=== PATIENT | female | born 1965 | race Caucasian/White ===

== ENCOUNTER 2017-03-06 10:41 | Emergency (ER) | payer OTHER ==
--- NOTE | 2017-03-06 13:18 | DIAGNOSTIC IMAGING REPORT ---
PROCEDURE: XR CHEST 1 VIEW INDICATION: CHEST PAIN TECHNIQUE: Portable AP view 01:08 p.m. COMPARISON: None. FINDINGS: Lungs are clear. Heart and mediastinum are normal. Thorax is normal. IMPRESSION: 1. Negative chest.
--- NOTE | 2017-03-06 14:51 | ED NURSING NOTES ---
Clinical Report - Nurses [facility] [address] [place] [address] 03/06/2017 10:43 Patient: ASHLEE JANG TRIAGE Triage time 10:50. Acuity: LEVEL 3. Chief Complaint: CHEST PAIN. 10:50 03/06/17. 10:50 03/06/17. Alert. No acute distress. SEPSIS SCREEN: Sepsis Screen. Negative (no infection suspected/documented). --11:05 Russ Lopez R.N. 10:50 03/06/17. BP: 153/77. HR: 101. RR: 18. O2 saturation: 98% on room air. Temp: 98.6 F (oral). Pain level now: 05/23. --11:05 Russ Lopez R.N. Weight: 68.9 kg stated. Height/Length: 61 inches Per Patient. BMI: 28.7. --10:50 Russ Lopez R.N. Medications Albuterol-Ipratropium Inhalation (Solution 0.5-2.5 (3) mg/3mL), prn every 4 hrs. --10:53 Russ Lopez R.N. Alendronate Sodium Oral (Tablet 70 mg) 1 tablet, weekly. --10:53 Russ Lopez R.N. Benzonatate Oral 200 mg, 3x a day as needed. --10:54 Russ Lopez R.N. Budesonide-Formoterol Fumarate Inhalation (Aerosol 80-4.5 mcg/act), 2 puffs two times a days. --10:54 Russ Lopez R.N. Cholecalciferol Oral (Tablet 1000 unit) 1 tablet, daily. --10:55 Russ Lopez R.N. Doxycycline Monohydrate Oral 100mg, two times a day. --10:56 Russ Lopez R.N. Ergocalciferol Oral (Capsule 63413 unit) 1 capsule, weekly. --10:56 Russ Lopez R.N. Insulin pen. --10:57 Russ Lopez R.N. Latuda Oral (Tablet 60 mg), every night. --10:57 Russ Lopez R.N. Levothyroxine Sodium Oral 50 mcg, daily. --10:57 Russ Lopez R.N. Linagliptin Oral (Tablet 5 mg), daily. --10:58 Russ Lopez R.N. Lisinopril Oral 2.5 mg, daily. --10:58 Russ Lopez R.N. Loratadine Oral (Tablet 10 mg), daily. --10:58 Russ Lopez R.N. Montelukast Sodium Oral 10 mg, daily. --10:59 Russ Lopez R.N. Morphine Sulfate Oral 15mg, 2x a day. --10:59 Russ Lopez R.N. Multivitamin Oral, daily. --10:59 Russ Lopez R.N. Novolg Insulin Sliding Scale. --11:00 Russ Lopez R.N. Zofran ODT Oral, as needed. --11:00 Russ Lopez R.N. OXcarbazepine Oral (Tablet 300 mg), 2x a day. --11:00 Russ Lopez R.N. Pantoprazole Sodium Oral 40 mg, daily. --11:00 Russ Lopez R.N. Pravastatin Sodium Oral 20 mg, at bedtime. --11:01 Russ Lopez R.N. Allergies Latex. --11:01 Russ Lopez R.N. PCN. --11:01 Russ Lopez R.N. Sulfa Antibiotics. --11:01 Russ Lopez R.N. Biaxin. --11:01 Russ Lopez R.N. Cephalosporins. --11:01 Russ Lopez R.N. Imitrex. --11:01 Russ Lopez R.N. Zithromax. --11:02 Russ Lopez R.N. Cyclosporine. --11:02 Russ Lopez R.N. Robaxin. --11:02 Russ Lopez R.N. History Arrived by private vehicle. Historian: patient. Primary physician ([facility]). 10:50 03/06/17. ( 2 days ago). She has had difficulty breathing and nausea. 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 (ASA 325 mg at 0800). PAST MEDICAL HX: Immunizations: up-to-date. SOCIAL HX: Current every day light tobacco smoker (cigarette)- less than 1/2 a pack per day. No alcohol use or drug use. No infectious disease exposure. ABUSE ASSESSMENT: No report of abuse. FALL RISK ASSESSMENT: Fall risk assessment completed. No fall risk identified. NUTRITIONAL RISK ASSESSMENT: The nutritional risk assessment revealed no deficiencies. FUNCTIONAL ASSESSMENT: Functional assessment: no impairments noted. LEARNING NEEDS ASSESSMENT: The learning needs assessment revealed no barriers. SKIN INTEGRITY ASSESSMENT: Skin integrity risk assessment completed. No skin integrity risk identified. --11:05 Russ Lopez R.N. PAST MEDICAL HX: The patient has had a hysterectomy. --11:05 Russ Lopez R.N. PROBLEMS: Chronic pain. Hypertension. Emphysema. COPD - Chronic Obstructive Pulmonary Disease. --10:55 Russ Lopez R.N. Urinary Incontinence. Left arm Tingling. Shoulder Pain. Cervicalgia. SIRS. Chronic Back Pain. Hyperplastic Colon Polyp. Pulmonary Nodule. Asthma. Allergic Rhinitis. Osteoporosis. Cauda equina syndrome. Sleep Apnea. Vitamin D deficiency. Gastroesophageal Reflux Disease. --11:04 Russ Lopez R.N. Arthritis. --11:05 Russ Lopez R.N. ADDITIONAL SURGERIES: Back Surgery. Neck Surgery. --10:55 Russ Lopez R.N. Hysterectomy. Knee. Wrist. --11:05 Russ Lopez R.N. Assessment 10:50 03/06/17. --11:05 Russ Lopez R.N. Interventions 10:50 03/06/17. 10:50 03/06/17. ID and allergy band on patient. To treatment room. --11:05 Russ Lopez R.N. PHYSICAL ASSESSMENT 11:06 03/06/17. Ambulatory to room. GENERAL / NEURO / PSYCH: Alert. Oriented X 4. Appears in no acute distress. RESPIRATORY: Respirations not labored. CVS: Normal sinus rhythm noted. SKIN: Skin is warm and dry. --11:06 Russ Lopez R.N. NURSING PROGRESS NOTES 10:56 03/06/17. EKG time: (1058 AM). EKG was ordered, performed by a tech and shown to the ED physician. --10:56 Russ Lopez R.N. 11:03/06/17. The plan of care for this patient has been created. surveillance monitor, pulse oximeter and NIBP monitor placed on patient; monitor alarms on. Patient gowned. Head of bed elevated. Call light placed in reach. Side rails up x 2. Bed placed in lowest position. Brakes of bed on. --11:06 Russ Lopez R.N. 11:03/06/17. Patient ready for evaluation- chart flagged and notification provided. --11:06 Russ Lopez R.N. 11:21 03/06/2017 Site #1 started via IV in the right antecubital space with an 20g angiocath, with aseptic technique and good blood return; one attempt. Blood drawn: rainbow set. Labeled in the presence of the patient and sent to the lab. Saline lock flushed with 10 mL saline. --11:21 Russ Lopez R.N. 12:18 03/06/17. Cardiac rhythm: normal sinus rhythm. --12:18 Russ Lopez R.N. 12:17 03/06/17. BP: 101/65. HR: 82. RR: 16. O2 saturation: 100% on nasal cannula at 2 liters/minute. --12:18 Russ Lopez R.N. 12:18 03/06/17. Patient informed about reason for wait and about plan of care. --12:18 Russ Lopez R.N. DISPOSITION / DISCHARGE 15:00 03/06/2017 Site #1 removed upon discharge. Catheter intact. Bandaid applied. --15:00 Russ Lopez R.N. 15:01 03/06/17. Condition at departure: improved. The goals identified in the patient's plan of care were met. No learning barriers present. Discharge instructions provided and reviewed with the patient. Reviewed warnings. Reviewed medication(s). Treatments reviewed. Patient verbalized understanding. Written instructions provided in Taiwanese. The patient was discharged by the physician. She was discharged home. She left the Emergency Department ambulatory and via private vehicle. Patient driving. FALL RISK ASSESSMENT: Fall risk assessment completed. No fall risk identified. --15:01 Russ Lopez R.N. 15:00 03/06/17. BP: 108/78. HR: 72. RR: 16. O2 saturation: 98% on room air. Temp: 98.2 F (oral). Pain level now: 11/23. --15:01 Russ Lopez R.N. 15:01 03/06/17. Departure time: 15:Mar 06 2017. --15:01 Russ Lopez R.N. Locked/Released at 03/06/2017 15:08 by Russ Lopez R.N.
--- NOTE | 2017-03-06 14:51 | ED ORDER SUMMARY ---
..... Patient: ASHLEE JANG OrderSheet [facility] VisitID: [id number] [address] [place] [address] 51y, F Registration Date/Time: 03/06/2017 ORDER SHEET Weight: 68.9 kg (stated) Allergies: Latex, PCN, Sulfa Antibiotics, Biaxin, Cephalosporins, Imitrex, Zithromax, Cyclosporine, Robaxin GENERAL ORDERS: Decontamination Technician (Continuous) (11:07 03/06/2017 JBoardley R.N. per protocol) (11:08 JBoardley R.N.) Cardiac Panel Stat (11:03/06/2017 JBoardley R.N. per protocol) (Ack 11:09 Veto) (11:21 JBoardley R.N.) UA-Culture if indicated Urgent (11:03/06/2017 JBoardley R.N. per protocol) (Ack 11:09 Veto) (11:21 JBoardley R.N.) Oxygen (2 L/min) (NC) (11:08 03/06/2017 JBoardley R.N. per protocol) (11:08 JBoardley R.N.) Pulse oximeter (11:03/06/2017 JBoardley R.N. per protocol) (11:08 JBoardley R.N.) EKG - ER Stat (11:03/06/2017 JBoardley R.N. per protocol) (11:08 JBoardley R.N.) Vitals (11:03/06/2017 JBoardley R.N. per protocol) (11:08 JBoardley R.N.) BNP Urgent (11:26 03/06/2017 Faye LIMA) (11:27 ALawrence ER Tech1) D-Dimer Urgent (11:49 03/06/2017 Faye LIMA) (11:51 ALawrence ER Tech1) PT with INR Urgent (11:49 03/06/2017 Faye LIMA) (11:51 ALawrence ER Tech1) PTT Urgent (11:49 03/06/2017 Faye LIMA) (11:51 ALawrence ER Tech1) Chest 1V Urgent (12:59 03/06/2017 Faye LIMA) (Ack 13:00 Veto) (13:07 Veto) MEDICATION ORDERS: IV FLUIDS: IV Saline Lock (11:08 03/06/2017 Radha R.N. per protocol) (Ack 11:08 JBoardley R.N.) (11:21 JBoardley R.N.) ORDER SHEET NOTES: [Electronically signed by Russ Lopez R.N. (15:08 03/06/2017)] [Electronically signed by Will Lester MD (04:00 03/08/2017)] [Electronically locked/signed by Russ Lopez R.N. (15:08 03/06/2017)]
--- NOTE | 2017-03-06 14:51 | ED CLINICAL REPORT ---
Clinical Report - Physicians/Mid Levels [facility] [address] [place] [address] 03/06/2017 10:43 Patient: ASHLEE JANG Time Seen: 11:12. Arrived- By private vehicle. Historian- patient. HISTORY OF PRESENT ILLNESS Chief Complaint: CHEST PAIN. At its maximum, severity described as 10 / 10. When seen in the E.D., severity described as 8 / 10. Modifying factors- worsened by exertion and movement. Relieved by rest. This started about 2 days ago and is still present. It was gradual in onset and has been constant and waxing/waning. Onset during rest. It is described as pressure and tightness and it is described as located in the central chest area. No radiation. The patient has had nausea and has experienced diaphoresis. No vomiting. She has had mild difficulty breathing on exertion. REVIEW OF SYSTEMS The patient has had calf pain involving the right leg (last night). She has had moderate pedal edema involving the right and left leg. All systems otherwise negative, except as recorded above. PAST HISTORY PCP - Maribel Whitaker [facility]. SOCIAL HISTORY Current every day light tobacco smoker (cigarette)- less than 1/2 a pack per day. No alcohol use or drug use. Is a local resident. She lives with a family member. FAMILY HISTORY her mother of a PE. ADDITIONAL NOTES The nursing notes have been reviewed. PHYSICAL EXAM Vital Signs: 03/06/2017 10:50 BP: 153/77. HR: 101. RR: 18. O2 saturation: 98%. Temp: 98.6 F. Pain level now: 8/10. Have been reviewed. Appearance: Alert. No acute distress. Eyes: Pupils equal, round and reactive to light. ENT: Pharynx normal. Neck: Neck supple. CVS: Normal heart rate and rhythm. Heart sounds normal. Respiratory: No respiratory distress. Expiratory mild wheezes in the right mid-lung posteriorly. Abdomen: Soft and nontender. Bowel sounds normal. No organomegaly. No mass. Skin: Skin warm and dry. Normal skin color. Normal skin turgor. Extremities: Mild right-sided calf tenderness. LABS, X-RAYS, AND EKG EKG: Rate: 99. The study has been independently viewed by me. Chest X-ray: No acute disease. The X-rays were independently viewed by me. Laboratory Tests: UA-Culture if indicated: (MARCIA: 03/06/2017 11:05) ( MsgRcvd 03/06/2017 11:43) Final results Test Result Flag Units (Reference) URINE COLOR YELLOW URINE APPEARANCE CLEAR URINE GLUCOSE NEGATIVE (NEGATIVE) URINE BILIRUBIN NEGATIVE (NEGATIVE) URINE KETONE NEGATIVE (NEGATIVE) URINE SPECIFIC GRAVITY 1.025 (1.010-1.030) URINE PH 5.5 (5.0-8.0) URINE PROTEIN NEGATIVE (NEGATIVE) URINE UROBILINOGEN 0.2 EU/dL (0.2-1.0) URINE NITRITE NEGATIVE (NEGATIVE) URINE BLOOD NEGATIVE (NEGATIVE) URINE LEUK ESTERASE NEGATIVE (NEGATIVE) URINE RBC 0-1 rbc/hpf (0-1) URINE WBC RARE wbc/hpf (0-1) URINE EPITHELIAL CELLS 0-1 EPI/hpf (0-5) URINE BACTERIA NONE SEEN (NONE SEEN) URINE COMMENT CULT NOT INDICATED URINE CULTURES ARE SET-UP BASED ON THE FOLLOWING CRITERIA:POSITIVE NITRITEPOSITIVE LEUKOCYTE ESTERASEGREATER THAN 10 WHITE BLOOD CELLSMODERATE (2+) OR GREATER BACTERIA CBC w Diff: (MARCIA: 03/06/2017 11:05) ( MsgRcvd 03/06/2017 11:32) Final results Test Result Flag Units (Reference) WHITE BLOOD COUNT 9.4 K/uL (4.5-11.5) RED BLOOD COUNT 4.52 M/uL (4.00-5.20) HEMOGLOBIN 12.7 gm/dL (12.0-16.0) HEMATOCRIT 38.6 % (36.0-46.0) MEAN CELL VOLUME 85 fL (80-100) MEAN CORPUSCULAR HGB 28 pg (26-34) MEAN CORPUSCULAR HGB CONC 33 g/dL (31-37) RED CELL DISTRIBUTION WIDTH 13.9 % (11.6-14.8) PLATELET COUNT 220 K/uL (150-400) NEUTROPHIL % 64.1 % (50-75) LYMPH % 30.3 % (25-40) MONO % 4.4 % (3-14) EOSINOPHIL % 0.8 % (0-4) BASOPHIL % 0.4 % (0-2) PT with INR: (MARCIA: 03/06/2017 11:05) ( [facility] 03/06/2017 12:23) Final results Test Result Flag Units (Reference) INR 0.9 (0.8-1.2) Low Intensity Therapy: INR 1.5-2.0 PT range 18.5-23.1Mod.Intensity Therapy: INR 2.0-3.0 PT range 23.1-31.5High Intensity Therapy: INR 2.5-3.5 PT range 27.4-35.5High Intensity Therapy 2: INR 3.0-4.0 PT range 31.5-39.3 APTT 30 SECONDS (24-34) D-DIMER QUANTITATIVE < 0.27 L ug/mLFEU (0.27-0.52) The primary value of this quantitative assay relates toits negative predictive value (i.e. exclusion) of pulmonaryembolism/deep vein thrombosis/DIC.Elevated levels of d-dimer may also occur with:, age, cancer, inflammation, liver disease,post-op, infection, hematoma, coronary disease, peripheralarteriopathy, bleeding disorders and thrombolytic treatment.Results should be correlated with other clinical andradiological data.Testing Methodology: Latex Immunoassay BNP: (MARCIA: 03/06/2017 11:05) ( [facility] 03/06/2017 12:10) Final results Test Result Flag Units (Reference) B-TYPE NATRIURETIC PEPTIDE 12.6 pg/ml (5-100) CHEM 13 PANEL: (MARCIA: 03/06/2017 11:05) ( [facility] 03/06/2017 12:12) Final results Test Result Flag Units (Reference) GLUCOSE 157 H mg/dL (70-110) BUN 9 mg/dL (7-18) CREATININE 0.7 mg/dL (0.6-1.3) Estimated GFR >60 mL/min Estimated GFR- >60 mL/min Note: Persistent reduction over 3 months in eGFR<60 mL/min/1.73 m2 defines CKD. Patients with eGFR values>=60 mL/min/1.73 m2 may also have CKD if evidence ofpersistent proteinuria. Additional information may be foundat www.kidney.org. SODIUM 136 mmol/L (136-145) POTASSIUM 3.8 mmol/L (3.5-5.1) CHLORIDE 101 mmol/L (98-107) CARBON DIOXIDE 22 mmol/L (21-32) CALCIUM 8.3 L mg/dL (8.5-10.1) TOTAL PROTEIN 7.5 g/dL (6.4-8.2) ALBUMIN 3.5 g/dL (3.3-5.0) BILIRUBIN, TOTAL 0.1 mg/dL (0.0-1.0) ALKALINE PHOSPHATASE 118 H U/L (46-116) AST (SGOT) 22 U/L (15-37) ALT (SGPT) 40 U/L (12-78) MAGNESIUM 1.6 L mg/dL (1.8-2.4) CPK 42 U/L (24-260) TROPONIN I 0.05 ng/mL (0.00-1.5) TROPONIN REFERENCE RANGE:<0.1 NEGATIVE0.1-1.5 INDETERMINANT>1.5 POSITIVE . PROGRESS AND PROCEDURES Course of Care: Patient is stable. Patient/family counseled. Old medical records ordered. Old records unavailable. Disposition: Discharged. Condition: stable. CLINICAL IMPRESSION Atypical chest pain INSTRUCTIONS Avoid stimulants (such as cigarettes, coffee, cold medicines, sinus medicines, street drugs). Follow a low salt diet. Do not smoke. Seek medical help to quit smoking. (Talk with your doctor about undergoing a stress test as discussed.). Warnings: Further evaluation is necessary. GENERAL WARNINGS: Return or contact your physician immediately if your condition worsens or changes unexpectedly, if not improving as expected, or if other problems arise. Your Current Medications: CONTINUE TAKING THE FOLLOWING MEDICATIONS: Albuterol-Ipratropium Inhalation : Solution 0.5-2.5 (3) mg/3mL, prn every 4 hrs. Alendronate Sodium Oral : Tablet 70 mg, 1 tablet weekly. Benzonatate Oral : 200 mg 3x a day, prn. Budesonide-Formoterol Fumarate Inhalation : Aerosol 80-4.5 mcg/act, 2 puffs two times a days. Cholecalciferol Oral : Tablet 1000 unit, 1 tablet daily. Doxycycline Monohydrate Oral : 100mg two times a day. Ergocalciferol Oral : Capsule 46892 unit, 1 capsule weekly. Insulin pen*. Latuda Oral : Tablet 60 mg, every night. Levothyroxine Sodium Oral : 50 mcg daily. Linagliptin Oral : Tablet 5 mg, daily. Lisinopril Oral : 2.5 mg daily. Loratadine Oral : Tablet 10 mg, daily. Montelukast Sodium Oral : 10 mg daily. Morphine Sulfate Oral : 15mg 2x a day. Multivitamin Oral : daily. Novolg Insulin Sliding Scale*. OXcarbazepine Oral : Tablet 300 mg, 2x a day. Pantoprazole Sodium Oral : 40 mg daily. Zofran ODT Oral : prn. Follow-up: Follow up with your doctor tomorrow as scheduled. Follow up with a cook specialty foreign food- as recommended by your primary care physician. Understanding of the discharge instructions verbalized by patient. (Electronically signed by Will Lester MD 03/08/2017 4:00)
--- NOTE | 2017-03-06 14:51 | ED ORDER SUMMARY ---
..... Patient: ASHLEE JANG OrderSheet [facility] VisitID: [id number] [address] [place] [address] 51y, F Registration Date/Time: 03/06/2017 ORDER SHEET Weight: 68.9 kg (stated) Allergies: Latex, PCN, Sulfa Antibiotics, Biaxin, Cephalosporins, Imitrex, Zithromax, Cyclosporine, Robaxin GENERAL ORDERS: Industrial Hygiene Technician (Continuous) (11:07 03/06/2017 JBoardley R.N. per protocol) (11:08 JBoardley R.N.) Cardiac Panel Stat (11:03/06/2017 JBoardley R.N. per protocol) (Ack 11:09 Veto) (11:21 JBoardley R.N.) UA-Culture if indicated Urgent (11:03/06/2017 JBoardley R.N. per protocol) (Ack 11:09 Veto) (11:21 JBoardley R.N.) Oxygen (2 L/min) (NC) (11:08 03/06/2017 JBoardley R.N. per protocol) (11:08 JBoardley R.N.) Pulse oximeter (11:03/06/2017 JBoardley R.N. per protocol) (11:08 JBoardley R.N.) EKG - ER Stat (11:03/06/2017 JBoardley R.N. per protocol) (11:08 JBoardley R.N.) Vitals (11:03/06/2017 JBoardley R.N. per protocol) (11:08 JBoardley R.N.) BNP Urgent (11:26 03/06/2017 Faye LIMA) (11:27 ALawrence ER Tech1) D-Dimer Urgent (11:49 03/06/2017 Faye LIMA) (11:51 ALawrence ER Tech1) PT with INR Urgent (11:49 03/06/2017 Faye LIMA) (11:51 ALawrence ER Tech1) PTT Urgent (11:49 03/06/2017 Faye LIMA) (11:51 ALawrence ER Tech1) Chest 1V Urgent (12:59 03/06/2017 Faye LIMA) (Ack 13:00 Veto) (13:07 Veto) MEDICATION ORDERS: IV FLUIDS: IV Saline Lock (11:08 03/06/2017 Radha R.N. per protocol) (Ack 11:08 JBoardley R.N.) (11:21 JBoardley R.N.) ORDER SHEET NOTES: [Electronically signed by Russ Lopez R.N. (15:08 03/06/2017)] [Electronically signed by Will Lester MD (04:00 03/08/2017)] [Electronically locked/signed by Russ Lopez R.N. (15:08 03/06/2017)]
--- NOTE | 2017-03-06 14:51 | ED NURSING NOTES ---
Clinical Report - Nurses [facility] [address] [place] [address] 03/06/2017 10:43 Patient: ASHLEE JANG TRIAGE Triage time 10:50. Acuity: LEVEL 3. Chief Complaint: CHEST PAIN. 10:50 03/06/17. 10:50 03/06/17. Alert. No acute distress. SEPSIS SCREEN: Sepsis Screen. Negative (no infection suspected/documented). --11:05 Russ Lopez R.N. 10:50 03/06/17. BP: 153/77. HR: 101. RR: 18. O2 saturation: 98% on room air. Temp: 98.6 F (oral). Pain level now: 05/23. --11:05 Russ Lopez R.N. Weight: 68.9 kg stated. Height/Length: 61 inches Per Patient. BMI: 28.7. --10:50 Russ Lopez R.N. Medications Albuterol-Ipratropium Inhalation (Solution 0.5-2.5 (3) mg/3mL), prn every 4 hrs. --10:53 Russ Lopez R.N. Alendronate Sodium Oral (Tablet 70 mg) 1 tablet, weekly. --10:53 Russ Lopez R.N. Benzonatate Oral 200 mg, 3x a day as needed. --10:54 Russ Lopez R.N. Budesonide-Formoterol Fumarate Inhalation (Aerosol 80-4.5 mcg/act), 2 puffs two times a days. --10:54 Russ Lopez R.N. Cholecalciferol Oral (Tablet 1000 unit) 1 tablet, daily. --10:55 Russ Lopez R.N. Doxycycline Monohydrate Oral 100mg, two times a day. --10:56 Russ Lopez R.N. Ergocalciferol Oral (Capsule 18603 unit) 1 capsule, weekly. --10:56 Russ Lopez R.N. Insulin pen. --10:57 Russ Lopez R.N. Latuda Oral (Tablet 60 mg), every night. --10:57 Russ Lopez R.N. Levothyroxine Sodium Oral 50 mcg, daily. --10:57 Russ Lopez R.N. Linagliptin Oral (Tablet 5 mg), daily. --10:58 Russ Lopez R.N. Lisinopril Oral 2.5 mg, daily. --10:58 Russ Lopez R.N. Loratadine Oral (Tablet 10 mg), daily. --10:58 Russ Lopez R.N. Montelukast Sodium Oral 10 mg, daily. --10:59 Russ Lopez R.N. Morphine Sulfate Oral 15mg, 2x a day. --10:59 Russ Lopez R.N. Multivitamin Oral, daily. --10:59 Russ Lopez R.N. Novolg Insulin Sliding Scale. --11:00 Russ Lopez R.N. Zofran ODT Oral, as needed. --11:00 Russ Lopez R.N. OXcarbazepine Oral (Tablet 300 mg), 2x a day. --11:00 Russ Lopez R.N. Pantoprazole Sodium Oral 40 mg, daily. --11:00 Russ Lopez R.N. Pravastatin Sodium Oral 20 mg, at bedtime. --11:01 Russ Lopez R.N. Allergies Latex. --11:01 Russ Lopez R.N. PCN. --11:01 Russ Lopez R.N. Sulfa Antibiotics. --11:01 Russ Lopez R.N. Biaxin. --11:01 Russ Lopez R.N. Cephalosporins. --11:01 Russ Lopez R.N. Imitrex. --11:01 Russ Lopez R.N. Zithromax. --11:02 Russ Lopez R.N. Cyclosporine. --11:02 Russ Lopez R.N. Robaxin. --11:02 Russ Lopez R.N. History Arrived by private vehicle. Historian: patient. Primary physician ([facility]). 10:50 03/06/17. ( 2 days ago). She has had difficulty breathing and nausea. Treatment CUT OFF TENDER GLASS: Took aspirin. (ASA 325 mg at 0800). PAST MEDICAL HX: Immunizations: up-to-date. SOCIAL HX: Current every day light tobacco smoker (cigarette)- less than 1/2 a pack per day. No alcohol use or drug use. No infectious disease exposure. ABUSE ASSESSMENT: No report of abuse. FALL RISK ASSESSMENT: Fall risk assessment completed. No fall risk identified. NUTRITIONAL RISK ASSESSMENT: The nutritional risk assessment revealed no deficiencies. FUNCTIONAL ASSESSMENT: Functional assessment: no impairments noted. LEARNING NEEDS ASSESSMENT: The learning needs assessment revealed no barriers. SKIN INTEGRITY ASSESSMENT: Skin integrity risk assessment completed. No skin integrity risk identified. --11:05 Russ Lopez R.N. PAST MEDICAL HX: The patient has had a hysterectomy. --11:05 Russ Lopez R.N. PROBLEMS: Chronic pain. Hypertension. Emphysema. COPD - Chronic Obstructive Pulmonary Disease. --10:55 Russ Lopez R.N. Urinary Incontinence. Left arm Tingling. Shoulder Pain. Cervicalgia. SIRS. Chronic Back Pain. Hyperplastic Colon Polyp. Pulmonary Nodule. Asthma. Allergic Rhinitis. Osteoporosis. Cauda equina syndrome. Sleep Apnea. Vitamin D deficiency. Gastroesophageal Reflux Disease. --11:04 Russ Lopez R.N. Arthritis. --11:05 Russ Lopez R.N. ADDITIONAL SURGERIES: Back Surgery. Neck Surgery. --10:55 Russ Lopez R.N. Hysterectomy. Knee. Wrist. --11:05 Russ Lopez R.N. Assessment 10:50 03/06/17. --11:05 Russ Lopez R.N. Interventions 10:50 03/06/17. 10:50 03/06/17. ID and allergy band on patient. To treatment room. --11:05 Russ Lopez R.N. PHYSICAL ASSESSMENT 11:06 03/06/17. Ambulatory to room. GENERAL / NEURO / PSYCH: Alert. Oriented X 4. Appears in no acute distress. RESPIRATORY: Respirations not labored. CVS: Normal sinus rhythm noted. SKIN: Skin is warm and dry. --11:06 Russ Lopez R.N. NURSING PROGRESS NOTES 10:56 03/06/17. EKG time: (1058 AM). EKG was ordered, performed by a tech and shown to the ED physician. --10:56 Russ Lopez R.N. 11:03/06/17. The plan of care for this patient has been created. retail sales advisor, pulse oximeter and NIBP monitor placed on patient; monitor alarms on. Patient gowned. Head of bed elevated. Call light placed in reach. Side rails up x 2. Bed placed in lowest position. Brakes of bed on. --11:06 Russ Lopez R.N. 11:03/06/17. Patient ready for evaluation- chart flagged and notification provided. --11:06 Russ Lopez R.N. 11:21 03/06/2017 Site #1 started via IV in the right antecubital space with an 20g angiocath, with aseptic technique and good blood return; one attempt. Blood drawn: rainbow set. Labeled in the presence of the patient and sent to the lab. Saline lock flushed with 10 mL saline. --11:21 Russ Lopez R.N. 12:18 03/06/17. Cardiac rhythm: normal sinus rhythm. --12:18 Russ Lopez R.N. 12:17 03/06/17. BP: 101/65. HR: 82. RR: 16. O2 saturation: 100% on nasal cannula at 2 liters/minute. --12:18 Russ Lopez R.N. 12:18 03/06/17. Patient informed about reason for wait and about plan of care. --12:18 Russ Lopez R.N. DISPOSITION / DISCHARGE 15:00 03/06/2017 Site #1 removed upon discharge. Catheter intact. Bandaid applied. --15:00 Russ Lopez R.N. 15:01 03/06/17. Condition at departure: improved. The goals identified in the patient's plan of care were met. No learning barriers present. Discharge instructions provided and reviewed with the patient. Reviewed warnings. Reviewed medication(s). Treatments reviewed. Patient verbalized understanding. Written instructions provided in [place]. The patient was discharged by the physician. She was discharged home. She left the Emergency Department ambulatory and via private vehicle. Patient driving. FALL RISK ASSESSMENT: Fall risk assessment completed. No fall risk identified. --15:01 Russ Lopez R.N. 15:00 03/06/17. BP: 108/78. HR: 72. RR: 16. O2 saturation: 98% on room air. Temp: 98.2 F (oral). Pain level now: 11/23. --15:01 Russ Lopez R.N. 15:01 03/06/17. Departure time: 15:Mar 06 2017. --15:01 Russ Lopez R.N. Locked/Released at 03/06/2017 15:08 by Russ Lopez R.N.
--- NOTE | 2017-03-08 04:01 | ED MED RECONCILIATION SUMMARY ---
Patient: ASHLEE JANG Medication Reconciliation Report [facility] VisitID: [id number] [address] [place] [address] 51y, F Registration Date/Time: 03/06/2017 Weight: 68.9 kg Height/Length: 61 in. BMI: 28.7 ALLERGIES: Biaxin, Cephalosporins, Cyclosporine, Imitrex, Latex, PCN, Robaxin, Sulfa Antibiotics, Zithromax The patient's Home Medications are listed below: CONTINUE TAKING THE FOLLOWING MEDICATIONS: Albuterol-Ipratropium Inhalation (0.5-2.5 (3) mg/3mL), prn every 4 hrs Alendronate Sodium Oral (70 mg) 1 tablet, weekly Benzonatate Oral 200 mg, 3x a day Budesonide-Formoterol Fumarate Inhalation (80-4.5 mcg/act), 2 puffs two times a days Cholecalciferol Oral (1000 unit) 1 tablet, daily Doxycycline Monohydrate Oral 100mg, two times a day Ergocalciferol Oral (08963 unit) 1 capsule, weekly Insulin pen Latuda Oral (60 mg), every night Levothyroxine Sodium Oral 50 mcg, daily Linagliptin Oral (5 mg), daily Lisinopril Oral 2.5 mg, daily Loratadine Oral (10 mg), daily Montelukast Sodium Oral 10 mg, daily Morphine Sulfate Oral 15mg, 2x a day Multivitamin Oral, daily Novolg Insulin Sliding Scale OXcarbazepine Oral (300 mg), 2x a day Pantoprazole Sodium Oral 40 mg, daily Zofran ODT Oral THE FOLLOWING MEDICATIONS NEED TO BE RECONCILED: Pravastatin Sodium Oral 20 mg, at bedtime The source(s) of the original Home Medication information: Not obtained. The following Medications were given to the patient in the Emergency Department: None. The following Medications were prescribed to the patient: None.
--- NOTE | 2017-03-08 04:01 | ED MAR SUMMARY ---
..... Medication Administration Record [facility] [address] [place], [place] [id number] Patient: ASHLEE JANG Visit ID: [id number] 51y, F Weight: 68.9 kg Height/Length: 61 in BMI: 28.7 ALLERGIES: Robaxin, Cyclosporine, Zithromax, Imitrex, Cephalosporins, Biaxin, Sulfa Antibiotics, PCN, Latex
--- NOTE | 2017-03-08 04:01 | ED DISCHARGE INSTRUCTIONS ---
Patient: ASHLEE JANG General Instructions [facility] VisitID: [id number] [place] [address] 51y, F Registration Date/Time: 03/06/2017 Atypical chest pain INSTRUCTIONS Avoid stimulants (such as cigarettes, coffee, cold medicines, sinus medicines, street drugs). Follow a low salt diet. Do not smoke. Seek medical help to quit smoking. (Talk with your doctor about undergoing a stress test as discussed.). Warnings: Further evaluation is necessary. GENERAL WARNINGS: Return or contact your physician immediately if your condition worsens or changes unexpectedly, if not improving as expected, or if other problems arise. Your Current Medications: CONTINUE TAKING THE FOLLOWING MEDICATIONS: Albuterol-Ipratropium Inhalation : Solution 0.5-2.5 (3) mg/3mL, prn every 4 hrs. Alendronate Sodium Oral : Tablet 70 mg, 1 tablet weekly. Benzonatate Oral : 200 mg 3x a day, prn. Budesonide-Formoterol Fumarate Inhalation : Aerosol 80-4.5 mcg/act, 2 puffs two times a days. Cholecalciferol Oral : Tablet 1000 unit, 1 tablet daily. Doxycycline Monohydrate Oral : 100mg two times a day. Ergocalciferol Oral : Capsule 62398 unit, 1 capsule weekly. Insulin pen*. Latuda Oral : Tablet 60 mg, every night. Levothyroxine Sodium Oral : 50 mcg daily. Linagliptin Oral : Tablet 5 mg, daily. Lisinopril Oral : 2.5 mg daily. Loratadine Oral : Tablet 10 mg, daily. Montelukast Sodium Oral : 10 mg daily. Morphine Sulfate Oral : 15mg 2x a day. Multivitamin Oral : daily. Novolg Insulin Sliding Scale*. OXcarbazepine Oral : Tablet 300 mg, 2x a day. Pantoprazole Sodium Oral : 40 mg daily. Zofran ODT Oral : prn. Follow-up: Follow up with your doctor tomorrow as scheduled. Follow up with a in flight refueling manager- as recommended by your primary care physician. Understanding of the discharge instructions verbalized by patient. ADDITIONAL INFORMATION Chest Pain, Uncertain Cause Chest pain can happen for a number of reasons. Sometimes the cause can not be determined. If yourcondition does not seem serious, and your pain does not appear to be coming from your heart, your doctor may recommend watching it closely. Sometimes the signs of a serious problem take more time to appear. Therefore, watch for the warning signs listed below. Home care After your visit, follow these recommendations: Rest today and avoid strenuous activity. Take any prescribed medicine as directed. Follow-up care Follow up with your doctor or this facility as instructed or if you do not start to feel better within 24 hours. Call 911 Get immediate medical attention if any of the following occur: A change in the type of pain: if it feels different, becomes more severe, lasts longer, or begins to spread into your shoulder, arm, neck, jaw or back Shortness of breath or increased pain with breathing Weakness, dizziness, or fainting Rapid heart beat Get prompt medical attention Call your doctor right away if any of the following occur: Cough with dark colored sputum (phlegm) or blood Fever of 100.4F(38C) or higher, or as directed by your health care provider Swelling, pain or redness in one leg Low-Salt Diet (2 Grams/Day) This diet eliminates foods that are high in salt and restricts the amount of salt that you cook with. It is most often used for patients with high blood pressure, edema (fluid retention), kidney, liver, and heart disease. Table salt contains the mineral sodium. The body needs sodium to work normally. But too much sodium can make your health problems worse. Your healthcare provider is recommending a low-salt (also called low-sodium) diet for you. Your total daily allowance of salt (sodium) is 2 grams. This equals 2,000 milligrams (mg). It is less than 1 teaspoon of table salt. This means you can have only about 700 mg of sodium at each meal. When you cook, limit the salt you use. And if you can avoid using salt, even better. Do not add salt at the table. So, throw away the saltshaker! When shopping, read the package labels. Salt is often called sodium on the label. Choose foods that are Salt-Free, Low Salt, or Very Low Salt. Note that foods with Reduced Salt may notlower your salt intake enough. Beverages OK: Tea, coffee, carbonated beverages, juices AVOID: Flavored international coffees, electrolyte replacement drinks, sports beverages Bread & Cereals OK: All regular bread, rolls, cereals, cakes; low-salt crackers, matzoh crackers AVOID: Salted crackers, pretzels, popcorn; cook islander toast, pancakes, muffins Fruits & Desserts OK: Ice cream, frozen yogurt, juice bars, gelatin (Jell-O), cookies and pies, sugar, honey, jelly, hard candy AVOID: Most pies, cakes and cookies prepared or processed with salt, instant pudding Meats OK: All fresh meat, fish, poultry, low-salt tuna AVOID: Smoked, pickled, brine-cured, or salted meats or fish. Thisincludes cuevas, chipped beef, corned beef, hot dogs, luncheon meats, ham, kosher meats, salt pork, sausage, canned tuna, salted codfish, smokedsalmon, montoya, sardines, or anchovies. Dairy OK: Milk, chocolate milk, hot chocolate mix; eggs, Low Salt cheeses, yogurt, egg substitute AVOID: Processed cheese, cheese spreads, Roquefort, Camembert, and cottage cheese, buttermilk, instant breakfast drink Beans, Potatoes & Pasta OK: Dry beans, split peas, lentils, potatoes, rice, macaroni, noodles, spaghetti without added salt AVOID: Potato chips, tortilla chips, and similar products Soups OK: Low-salt soups and broths made with allowed foods AVOID: Bouillon cubes, soups with smoked or salted meats, regular soup and broth Vegetables OK: Most are okay; low-salt tomato and vegetable juices AVOID: Sauerkraut and other brine-soaked vegetables, pickles and other pickled vegetables, tomato juice, olives Seasoning & Spices OK: Most seasonings are okay. Good substitutes for salt include: fresh herb blends, Tabasco, lemon, garlic, sharma, vinegar, dry mustard, parsley, cilantro, horseradish, tomato paste, regular margarine, mayonnaise, butter, cream cheese, vegetable oil, cream, low-salt salad dressing and gravy AVOID: Regular ketchup, relishes, pickles, soy sauce, teriyaki sauce, Worcestershire sauce, BBQ sauce, tartar sauce, meat tenderizer, chili sauce, regular gravy, regular salad dressing How To Quit Smoking Smoking is one of the hardest habits to break. About half of all those who have ever smoked have been able to quit, and most of those (about 70%) who still smoke want to quit. Here are some of the best ways to stop smoking. Keep Trying: It takes most smokers about 8 tries before they are finally able to fully quit. So, the more often you try and fail, the better your chance of quitting the next time! So, don't give up! Go Cold [place]: Most ex-smokers quit cold turkey. Trying to cut back gradually doesn't seem to work as well, perhaps because it continues the smoking habit. Also, it is possible to fool yourself by inhaling more while smoking fewer cigarettes. This results in the same amount of nicotine in your body! Get Support: Support programs can make an important difference, especially for the heavy smoker. These groups offer lectures, methods to change your behavior and peer support. Call the free national Quitline for more information. 170-FKVM-CFM (688-284-5342). Low-cost or free programs are offered by many hospitals, local chapters of the [place] [employer] (091-034-1021) and the [place] [employer] (695-157-5150). Support at home is important too. Non-smokers can help by offering praise and encouragement. If the smoker fails to quit, encourage them to try again! Gcgf-Ebz-Tucnjfn Medicines: For those who can't quit on their own, Nicotine Replacement Therapy (NRT) may make quitting much easier. Certain aids such as the nicotine patch, gum and lozenge are available without a prescription. However, it is best to use these under the guidance of your doctor. The skin patch provides a steady supply of nicotine to the body. Nicotine gum and lozenge gives temporary bursts of low levels of nicotine. Both methods take the edge off the craving for cigarettes. WARNING: If you feel symptoms of nicotine overdose, such as nausea, vomiting, dizziness, weakness, or fast heartbeat, stop using these and see your doctor. Prescription Medicines: After evaluating your smoking patterns and prior attempts at quitting, your doctor may offer a prescription medicine such as bupropion (Zyban, Wellbutrin), varenicline (Chantix, Champix), a niocotine inhaler or nasal spray. Each has its unique advantage and side effects which your doctor can review with you. Health Benefits Of Quitting: The benefits of quitting start right away and keep improving the longer you go without smokin minutes: blood pressure and pulse return to normal 8 hours: oxygen levels return to normal 2 days: ability to smell and taste begins to improve as damaged nerves start to regrow 2-3 weeks: circulation and lung function improves 1-9 months: decreased cough, congestion and shortness of breath; less tired 1 year: risk of heart attack decreases by half 5 years: risk of lung cancer decreases by half; risk of stroke becomes the same as a non-smoker For information about how to quit smoking, visit the following links: National Cancer Ary , Clearing the Air, Quit Smoking Today - an online booklet. http://www.smokefree.gov/pubs/clearing_the_air.pdf Smokefree.gov http://smokefree.gov/ QuitNet http://www.quitnet.com/ You have been given the following additional information: Chest Pain, Uncertain Cause Diet, Low Salt (2Gm) Smoking Cessation (Electronically signed by Will Lester MD 03/08/2017 4:00)
--- NOTE | 2017-03-08 04:01 | ED DISCHARGE INSTRUCTIONS ---
Patient: ASHLEE JANG General Instructions [facility] VisitID: [id number] [place] [address] 51y, F Registration Date/Time: 03/06/2017 Atypical chest pain INSTRUCTIONS Avoid stimulants (such as cigarettes, coffee, cold medicines, sinus medicines, street drugs). Follow a low salt diet. Do not smoke. Seek medical help to quit smoking. (Talk with your doctor about undergoing a stress test as discussed.). Warnings: Further evaluation is necessary. GENERAL WARNINGS: Return or contact your physician immediately if your condition worsens or changes unexpectedly, if not improving as expected, or if other problems arise. Your Current Medications: CONTINUE TAKING THE FOLLOWING MEDICATIONS: Albuterol-Ipratropium Inhalation : Solution 0.5-2.5 (3) mg/3mL, prn every 4 hrs. Alendronate Sodium Oral : Tablet 70 mg, 1 tablet weekly. Benzonatate Oral : 200 mg 3x a day, prn. Budesonide-Formoterol Fumarate Inhalation : Aerosol 80-4.5 mcg/act, 2 puffs two times a days. Cholecalciferol Oral : Tablet 1000 unit, 1 tablet daily. Doxycycline Monohydrate Oral : 100mg two times a day. Ergocalciferol Oral : Capsule 54080 unit, 1 capsule weekly. Insulin pen*. Latuda Oral : Tablet 60 mg, every night. Levothyroxine Sodium Oral : 50 mcg daily. Linagliptin Oral : Tablet 5 mg, daily. Lisinopril Oral : 2.5 mg daily. Loratadine Oral : Tablet 10 mg, daily. Montelukast Sodium Oral : 10 mg daily. Morphine Sulfate Oral : 15mg 2x a day. Multivitamin Oral : daily. Novolg Insulin Sliding Scale*. OXcarbazepine Oral : Tablet 300 mg, 2x a day. Pantoprazole Sodium Oral : 40 mg daily. Zofran ODT Oral : prn. Follow-up: Follow up with your doctor tomorrow as scheduled. Follow up with a training analyst- as recommended by your primary care physician. Understanding of the discharge instructions verbalized by patient. ADDITIONAL INFORMATION Chest Pain, Uncertain Cause Chest pain can happen for a number of reasons. Sometimes the cause can not be determined. If yourcondition does not seem serious, and your pain does not appear to be coming from your heart, your doctor may recommend watching it closely. Sometimes the signs of a serious problem take more time to appear. Therefore, watch for the warning signs listed below. Home care After your visit, follow these recommendations: Rest today and avoid strenuous activity. Take any prescribed medicine as directed. Follow-up care Follow up with your doctor or this facility as instructed or if you do not start to feel better within 24 hours. Call 911 Get immediate medical attention if any of the following occur: A change in the type of pain: if it feels different, becomes more severe, lasts longer, or begins to spread into your shoulder, arm, neck, jaw or back Shortness of breath or increased pain with breathing Weakness, dizziness, or fainting Rapid heart beat Get prompt medical attention Call your doctor right away if any of the following occur: Cough with dark colored sputum (phlegm) or blood Fever of 100.4F(38C) or higher, or as directed by your health care provider Swelling, pain or redness in one leg Low-Salt Diet (2 Grams/Day) This diet eliminates foods that are high in salt and restricts the amount of salt that you cook with. It is most often used for patients with high blood pressure, edema (fluid retention), kidney, liver, and heart disease. Table salt contains the mineral sodium. The body needs sodium to work normally. But too much sodium can make your health problems worse. Your healthcare provider is recommending a low-salt (also called low-sodium) diet for you. Your total daily allowance of salt (sodium) is 2 grams. This equals 2,000 milligrams (mg). It is less than 1 teaspoon of table salt. This means you can have only about 700 mg of sodium at each meal. When you cook, limit the salt you use. And if you can avoid using salt, even better. Do not add salt at the table. So, throw away the saltshaker! When shopping, read the package labels. Salt is often called sodium on the label. Choose foods that are Salt-Free, Low Salt, or Very Low Salt. Note that foods with Reduced Salt may notlower your salt intake enough. Beverages OK: Tea, coffee, carbonated beverages, juices AVOID: Flavored international coffees, electrolyte replacement drinks, sports beverages Bread & Cereals OK: All regular bread, rolls, cereals, cakes; low-salt crackers, matzoh crackers AVOID: Salted crackers, pretzels, popcorn; greenlandic toast, pancakes, muffins Fruits & Desserts OK: Ice cream, frozen yogurt, juice bars, gelatin (Jell-O), cookies and pies, sugar, honey, jelly, hard candy AVOID: Most pies, cakes and cookies prepared or processed with salt, instant pudding Meats OK: All fresh meat, fish, poultry, low-salt tuna AVOID: Smoked, pickled, brine-cured, or salted meats or fish. Thisincludes cuevas, chipped beef, corned beef, hot dogs, luncheon meats, ham, kosher meats, salt pork, sausage, canned tuna, salted codfish, smokedsalmon, montoya, sardines, or anchovies. Dairy OK: Milk, chocolate milk, hot chocolate mix; eggs, Low Salt cheeses, yogurt, egg substitute AVOID: Processed cheese, cheese spreads, Roquefort, Camembert, and cottage cheese, buttermilk, instant breakfast drink Beans, Potatoes & Pasta OK: Dry beans, split peas, lentils, potatoes, rice, macaroni, noodles, spaghetti without added salt AVOID: Potato chips, tortilla chips, and similar products Soups OK: Low-salt soups and broths made with allowed foods AVOID: Bouillon cubes, soups with smoked or salted meats, regular soup and broth Vegetables OK: Most are okay; low-salt tomato and vegetable juices AVOID: Sauerkraut and other brine-soaked vegetables, pickles and other pickled vegetables, tomato juice, olives Seasoning & Spices OK: Most seasonings are okay. Good substitutes for salt include: fresh herb blends, Tabasco, lemon, garlic, sharma, vinegar, dry mustard, parsley, cilantro, horseradish, tomato paste, regular margarine, mayonnaise, butter, cream cheese, vegetable oil, cream, low-salt salad dressing and gravy AVOID: Regular ketchup, relishes, pickles, soy sauce, teriyaki sauce, Worcestershire sauce, BBQ sauce, tartar sauce, meat tenderizer, chili sauce, regular gravy, regular salad dressing How To Quit Smoking Smoking is one of the hardest habits to break. About half of all those who have ever smoked have been able to quit, and most of those (about 70%) who still smoke want to quit. Here are some of the best ways to stop smoking. Keep Trying: It takes most smokers about 8 tries before they are finally able to fully quit. So, the more often you try and fail, the better your chance of quitting the next time! So, don't give up! Go Cold [place]: Most ex-smokers quit cold turkey. Trying to cut back gradually doesn't seem to work as well, perhaps because it continues the smoking habit. Also, it is possible to fool yourself by inhaling more while smoking fewer cigarettes. This results in the same amount of nicotine in your body! Get Support: Support programs can make an important difference, especially for the heavy smoker. These groups offer lectures, methods to change your behavior and peer support. Call the free national Quitline for more information. 621-CZIV-PYI (921-244-4733). Low-cost or free programs are offered by many hospitals, local chapters of the [place] [employer] (079-622-9017) and the [place] [employer] (158-017-0998). Support at home is important too. Non-smokers can help by offering praise and encouragement. If the smoker fails to quit, encourage them to try again! Iazr-Zci-Koyxanw Medicines: For those who can't quit on their own, Nicotine Replacement Therapy (NRT) may make quitting much easier. Certain aids such as the nicotine patch, gum and lozenge are available without a prescription. However, it is best to use these under the guidance of your doctor. The skin patch provides a steady supply of nicotine to the body. Nicotine gum and lozenge gives temporary bursts of low levels of nicotine. Both methods take the edge off the craving for cigarettes. WARNING: If you feel symptoms of nicotine overdose, such as nausea, vomiting, dizziness, weakness, or fast heartbeat, stop using these and see your doctor. Prescription Medicines: After evaluating your smoking patterns and prior attempts at quitting, your doctor may offer a prescription medicine such as bupropion (Zyban, Wellbutrin), varenicline (Chantix, Champix), a niocotine inhaler or nasal spray. Each has its unique advantage and side effects which your doctor can review with you. Health Benefits Of Quitting: The benefits of quitting start right away and keep improving the longer you go without smokin minutes: blood pressure and pulse return to normal 8 hours: oxygen levels return to normal 2 days: ability to smell and taste begins to improve as damaged nerves start to regrow 2-3 weeks: circulation and lung function improves 1-9 months: decreased cough, congestion and shortness of breath; less tired 1 year: risk of heart attack decreases by half 5 years: risk of lung cancer decreases by half; risk of stroke becomes the same as a non-smoker For information about how to quit smoking, visit the following links: National Cancer Coward , Clearing the Air, Quit Smoking Today - an online booklet. http://www.smokefree.gov/pubs/clearing_the_air.pdf Smokefree.gov http://smokefree.gov/ QuitNet http://www.quitnet.com/ You have been given the following additional information: Chest Pain, Uncertain Cause Diet, Low Salt (2Gm) Smoking Cessation (Electronically signed by Will Lester MD 03/08/2017 4:00)
--- NOTE | 2017-03-08 04:01 | ED MED RECONCILIATION SUMMARY ---
Patient: ASHLEE JANG Medication Reconciliation Report [facility] VisitID: [id number] [address] [place] [address] 51y, F Registration Date/Time: 03/06/2017 Weight: 68.9 kg Height/Length: 61 in. BMI: 28.7 ALLERGIES: Biaxin, Cephalosporins, Cyclosporine, Imitrex, Latex, PCN, Robaxin, Sulfa Antibiotics, Zithromax The patient's Home Medications are listed below: CONTINUE TAKING THE FOLLOWING MEDICATIONS: Albuterol-Ipratropium Inhalation (0.5-2.5 (3) mg/3mL), prn every 4 hrs Alendronate Sodium Oral (70 mg) 1 tablet, weekly Benzonatate Oral 200 mg, 3x a day Budesonide-Formoterol Fumarate Inhalation (80-4.5 mcg/act), 2 puffs two times a days Cholecalciferol Oral (1000 unit) 1 tablet, daily Doxycycline Monohydrate Oral 100mg, two times a day Ergocalciferol Oral (17792 unit) 1 capsule, weekly Insulin pen Latuda Oral (60 mg), every night Levothyroxine Sodium Oral 50 mcg, daily Linagliptin Oral (5 mg), daily Lisinopril Oral 2.5 mg, daily Loratadine Oral (10 mg), daily Montelukast Sodium Oral 10 mg, daily Morphine Sulfate Oral 15mg, 2x a day Multivitamin Oral, daily Novolg Insulin Sliding Scale OXcarbazepine Oral (300 mg), 2x a day Pantoprazole Sodium Oral 40 mg, daily Zofran ODT Oral THE FOLLOWING MEDICATIONS NEED TO BE RECONCILED: Pravastatin Sodium Oral 20 mg, at bedtime The source(s) of the original Home Medication information: Not obtained. The following Medications were given to the patient in the Emergency Department: None. The following Medications were prescribed to the patient: None.
--- NOTE | 2017-03-08 04:01 | ED MAR SUMMARY ---
..... Medication Administration Record [facility] [address] [place], [place] [id number] Patient: ASHLEE JANG Visit ID: [id number] 51y, F Weight: 68.9 kg Height/Length: 61 in BMI: 28.7 ALLERGIES: Robaxin, Cyclosporine, Zithromax, Imitrex, Cephalosporins, Biaxin, Sulfa Antibiotics, PCN, Latex
== END 2017-03-06 15:01 | disposition home or self-care (01) ==
LOC: ED SRH 10:41
DX: R07.89 Other chest pain (principal); M79.661 Pain in right lower leg; Z72.0 Tobacco use
CPT/HCPCS: 90004; 90100; 90616; 91320; 91556; 92610; 92720; 94001; 94060; 95059

== ENCOUNTER 2017-03-25 16:24 | Emergency (ER) | payer OTHER ==
--- NOTE | 2017-03-25 17:16 | DIAGNOSTIC IMAGING REPORT ---
PROCEDURE: XR CHEST 2 VIEW INDICATION: FEVER TECHNIQUE: PA and lateral views. COMPARISON: Chest 03/06/2017 FINDINGS: Lungs are clear. Heart and mediastinum are normal. Thorax is normal. Previous lumbar fusion. IMPRESSION: 1. Negative chest.
--- NOTE | 2017-03-25 18:07 | DIAGNOSTIC IMAGING REPORT ---
PROCEDURE: CT ABDOMEN/PELVIS W/O CONTRAST INDICATION: Right flank pain. Elevated white blood count. History of appendectomy, cholecystectomy, hysterectomy. TECHNIQUE: Noncontrast axial images with sagittal and coronal reformations. COMPARISON: None. FINDINGS: ABDOMEN: Kidneys and ureters are normal. No evidence of urinary tract calculus or obstruction. Cholecystectomy. Liver,, spleen, pancreas, and aorta are normal. Bowel pattern is normal. Status post multilevel lumbar fusion and laminectomy with posterior stabilization plates, pedicle screws, and L2-3 L3-4 EMILY implants. PELVIS: Status post hysterectomy. Pelvic structures are otherwise normal. No evidence of free fluid. IMPRESSION: 1. Status post cholecystectomy and hysterectomy. 2. Extensive postoperative changes and fusion of the lumbar spine. 3. Normal kidneys and ureters. No evidence of urinary tract calculus or obstruction. 4. Findings discussed with ISAEL Martin. All CT scans at this facility use dose modulation, iterative reconstruction, and/or weight-based dosing when appropriate to reduce radiation dose to as low as reasonably achievable.
--- NOTE | 2017-03-25 18:13 | ED CLINICAL REPORT ---
Clinical Report - Physicians/Mid Levels [facility] [address] [place] [address] 03/25/2017 16:25 Patient: ASHLEE JANG Time Seen: 16:37 Johnnie 12 2016. Arrived- By private vehicle. Historian- patient. HISTORY OF PRESENT ILLNESS Chief Complaint: ABDOMINAL PAIN and FLANK PAIN. It is described as located in the right flank. This started 5 days [employer]ING [employer]IC. No nausea, vomiting or diarrhea. (Patient reports right flank and back pain over the last 5 days, worsens with movement and any activity. Patient has had a cough, history of smoking and COPD. patient reports pain worsens with movement and activity. patient does take pain medications for this.). REVIEW OF SYSTEMS No constipation, difficulty with urination, pain with urination, chest pain or difficulty breathing. All systems otherwise negative, except as recorded above. SOCIAL HISTORY Smoker- current status unknown. No alcohol use or drug use. ADDITIONAL NOTES The nursing notes have been reviewed. PHYSICAL EXAM Vital Signs: 03/25/2017 16:29 BP: 161/79. HR: 100. RR: 17. O2 saturation: 100%. Temp: 98.3 F. Pain level now: 9/10. ENT: Ears normal. Nose normal. Neck: Normal inspection. No lymphadenopathy or thyromegaly. CVS: Normal heart rate and rhythm. Heart sounds normal. Respiratory: No respiratory distress. Breath sounds normal. No decreased air movement. Abdomen: Soft and nontender. No organomegaly. No mass. No abdominal tenderness. Back: (soft tissue thoracic tenderness, no midline tendernss.). Neuro: Oriented X 3. No motor deficit. LABS, X-RAYS, AND EKG Chest X-ray: (IMPRESSION: 1. Negative chest. Electronically Final signed by:Lloyd Jean MD 03/25/2017 5:16:37 PM). Abdominal CT: IMPRESSION: 1. Status post cholecystectomy and hysterectomy. 2. Extensive postoperative changes and fusion of the lumbar spine. 3. Normal kidneys and ureters. No evidence of urinary tract calculus or obstruction. 4. Findings discussed with Clarisse Koroleva, PAC. All CT scans at this facility use dose modulation, iterative reconstruction, and/or weight-based dosing when appropriate to reduce radiation dose to as low as reasonably achievable. Electronically Final signed by:Levi Lombardi MD 03/25/2017 6:02:19 PM. Laboratory Tests: UA-Culture if indicated: (MARCIA: 03/25/2017 16:51) ( [facility] [place] 03/25/[place] 17:23) Final results Test Result Flag Units (Reference) URINE COLOR YELLOW URINE APPEARANCE CLEAR URINE GLUCOSE NEGATIVE (NEGATIVE) URINE BILIRUBIN NEGATIVE (NEGATIVE) URINE KETONE NEGATIVE (NEGATIVE) URINE SPECIFIC GRAVITY 1.010 (1.010-1.030) URINE PH 6.0 (5.0-8.0) URINE PROTEIN NEGATIVE (NEGATIVE) URINE UROBILINOGEN 0.2 EU/dL (0.2-1.0) URINE NITRITE NEGATIVE (NEGATIVE) URINE BLOOD NEGATIVE (NEGATIVE) URINE LEUK ESTERASE NEGATIVE (NEGATIVE) URINE RBC NONE SEEN rbc/hpf (0-1) URINE WBC 0-1 wbc/hpf (0-1) URINE EPITHELIAL CELLS 1-3 EPI/hpf (0-5) URINE BACTERIA NONE SEEN (NONE SEEN) URINE COMMENT CULT NOT INDICATED URINE CULTURES ARE SET-UP BASED ON THE FOLLOWING CRITERIA:POSITIVE NITRITEPOSITIVE LEUKOCYTE ESTERASEGREATER THAN 10 WHITE BLOOD CELLSMODERATE (2+) OR GREATER BACTERIA CBC w Diff: (MARCIA: 03/25/2017 16:51) ( [facility] [place]25[place] 17:07) Final results Test Result Flag Units (Reference) WHITE BLOOD COUNT 13.3 H K/uL (4.5-11.5) RED BLOOD COUNT 4.68 M/uL (4.00-5.20) HEMOGLOBIN 13.1 gm/dL (12.0-16.0) HEMATOCRIT 39.7 % (36.0-46.0) MEAN CELL VOLUME 85 fL (80-100) MEAN CORPUSCULAR HGB 28 pg (26-34) MEAN CORPUSCULAR HGB CONC 33 g/dL (31-37) RED CELL DISTRIBUTION WIDTH 12.9 % (11.6-14.8) PLATELET COUNT 251 K/uL (150-400) NEUTROPHIL % 67.3 % (50-75) LYMPH % 25.3 % (25-40) MONO % 4.7 % (3-14) EOSINOPHIL % 1.0 % (0-4) BASOPHIL % 1.7 % (0-2) CMP: (MARCIA: 03/25/2017 16:51) ( [facility] 03/25/2017 17:18) Final results Test Result Flag Units (Reference) GLUCOSE 115 H mg/dL (70-110) BUN 6 L mg/dL (7-18) CREATININE 0.7 mg/dL (0.6-1.3) Estimated GFR >60 mL/min Estimated GFR- >60 mL/min Note: Persistent reduction over 3 months in eGFR<60 mL/min/1.73 m2 defines CKD. Patients with eGFR values>=60 mL/min/1.73 m2 may also have CKD if evidence ofpersistent proteinuria. Additional information may be foundat www.kidney.org. SODIUM 133 L mmol/L (136-145) POTASSIUM 4.1 mmol/L (3.5-5.1) CHLORIDE 99 mmol/L (98-107) CARBON DIOXIDE 23 mmol/L (21-32) CALCIUM 9.4 mg/dL (8.5-10.1) TOTAL PROTEIN 7.9 g/dL (6.4-8.2) ALBUMIN 3.9 g/dL (3.3-5.0) BILIRUBIN, TOTAL 0.1 mg/dL (0.0-1.0) ALKALINE PHOSPHATASE 94 U/L (46-116) AST (SGOT) 12 L U/L (15-37) ALT (SGPT) 18 U/L (12-78) LIPASE 250 U/L (73-393) . PROGRESS AND PROCEDURES Course of Care: Patient in the emergency department with pain reproduced on palpation. Patient was slight leukocytosis, this had a complete workup in the ER, with no signs of acute infectious process. 03/25/2017 18:31 BP: 147/72. HR: 89. RR: 15. O2 saturation: 100%. Temp: 97.8 F. Pain level now: 8/10. Patient is stable. Symptoms better. Patient/family counseled. Disposition: Discharged. CLINICAL IMPRESSION Acute thoracic and lumbar back pain. INSTRUCTIONS Drink plenty of fluids. Prescription Medications: Soma 350 mg: take 1 orally every 6 hours for 3 days as needed for muscle spasm. Dispense fifteen (15). No refill. Substitution is permissible. Sulamyd ophthalmic solution 10% : Instill 2 drops into affected eye every 2 hours while awake for 1 week. Dispense fifteen (15) mL. No refills. Substitution is permissible. Follow-up: Follow up with your doctor in three days. (Electronically signed by Vicky Gregory P.A.-C 03/25/2017 19:00)
--- NOTE | 2017-03-25 18:13 | ED ORDER SUMMARY ---
..... Patient: ASHLEE JANG OrderSheet [facility] VisitID: [id number] [address] [place] [address] 51y, F Registration Date/Time: 03/25/2017 ORDER SHEET Weight: 73.4 kg (stated) Allergies: Biaxin, Cephalosporins, Cyclosporine, Imitrex, Latex, PCN, Robaxin, Sulfa Antibiotics, Zithromax GENERAL ORDERS: Chest 2V Urgent (16:41 03/25/2017 EKoroleva P.A.-C) (Ack 16:43 PWeiler ER Tech1) (16:56 KPage-Kuchan R.N.) CBC w Diff Urgent (16:41 03/25/2017 EKoroleva P.A.-C) (Ack 16:43 PWeiler ER Tech1) (16:56 KPage-Kuchan R.N.) CMP Urgent (16:41 03/25/2017 EKoroleva P.A.-C) (Ack 16:43 PWeiler ER Tech1) (16:56 KPage-Kuchan R.N.) UA-Culture if indicated Urgent (16:41 03/25/2017 EKoroleva P.A.-C) (Ack 16:43 PWeiler ER Tech1) (16:56 KPage-Kuchan R.N.) Lipase Urgent (16:41 03/25/2017 EKoroleva P.A.-C) (Ack 16:43 PWeiler ER Tech1) (16:56 KPage-Kuchan R.N.) CT Abd/Pel wo Cont Urgent (17:44 03/25/2017 EKoroleva P.A.-C) (Ack 17:49 PWeiler ER Tech1) MEDICATION ORDERS: IV FLUIDS: IV Saline Lock (16:52 03/25/2017 EKoroleva P.A.-C) (16:56 KPage-Kuchan R.N.) ORDER SHEET NOTES: [Electronically signed by Vicky GregoryAChata (19:00 03/25/2017)] [Electronically signed by Jacobo Burt RJeffery (23:03/25/2017)] [Electronically locked/signed by Jacobo Burt R.N. (23:20 03/25/2017)]
--- NOTE | 2017-03-25 18:13 | ED NURSING NOTES ---
Clinical Report - Nurses [facility] [address] [place] [address] 03/25/2017 16:25 Patient: ASHLEE JANG TRIAGE Triage time 16:29 Mar 25 2017. Chief Complaint: (right sided flank pain x 5 days, describes as "sharp" with 3 emesis today- pt went to urgent care [facility] , they did a UA, per pt negative for "infection"). Alert. No acute distress. SEPSIS SCREEN: Sepsis Screen: negative. Infection suspected/documented. Heart rate greater than 90. --16:34 Jacobo Burt R.N. 16:29 03/25/17. BP: 161/79. HR: 100. RR: 17. O2 saturation: 100%. Temp: 98.3 F. Pain level now: 06/23. --16:34 Jacobo Burt R.N. Weight: 73.4 kg stated. Height/Length: 60 inches Per Patient. BMI: 31.6. --16:30 Jacobo Burt R.N. Medications Alendronate Sodium Oral (Tablet 70 mg) 1 tablet, weekly. Benzonatate Oral 200 mg, 3x a day as needed. Cholecalciferol Oral (Tablet 1000 unit) 1 tablet, daily. Ergocalciferol Oral (Capsule 63846 unit) 1 capsule, weekly. Insulin pen. Latuda Oral (Tablet 60 mg), every night. Levothyroxine Sodium Oral 50 mcg, daily. Lisinopril Oral 2.5 mg, daily. Montelukast Sodium Oral 10 mg, daily. --16:40 Jacobo Burt R.N. Multivitamin Oral, daily. OXcarbazepine Oral (Tablet 300 mg), 2x a day. Pantoprazole Sodium Oral 40 mg, daily. Pravastatin Sodium Oral 20 mg, at bedtime. Zofran ODT Oral, as needed. --16:40 Jacobo Burt R.N. Symbicort Inhalation. --16:40 Jacobo Burt R.N. Ventolin HFA Inhalation. --16:40 Jacobo Burt R.N. OxyCODONE HCl Oral. --16:40 Jacobo Burt R.N. Lyrica Oral. --16:41 Jacobo Burt R.N. Ibuprofen Oral. --16:41 Jacobo Burt R.N. EpiPen 2-Carlos Injection. --16:41 Jacobo Burt R.N. Combivent Respimat Inhalation. --16:41 Jacobo Burt R.N. Aspirin Oral (Tablet 81 mg) 1 tablet, daily. --16:42 Jacobo Burt R.N. Acetaminophen Oral. --16:42 Jacobo Burt R.N. Allergies Biaxin. Cephalosporins. Cyclosporine. Imitrex. Latex. PCN. Robaxin. Sulfa Antibiotics. Zithromax. --16:32 Jacobo Burt R.N. Medication/allergy information source: the patient. --16:34 Jacobo Burt R.N. History Arrived by private vehicle. Historian: patient. The patient has had nausea and vomiting. 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 (oxycodone). PAST MEDICAL HX: Immunizations: up-to-date. The patient has had a hysterectomy. SOCIAL HX: Heavy tobacco smoker (cigarette)- less than 1 pack per day. No alcohol use or drug use. No infectious disease exposure. No known contact with a sick individual. ABUSE ASSESSMENT: No report of abuse. SELF HARM ASSESSMENT: A self harm assessment was performed. The patient answered "no" to the question "Do you have thoughts of harming or killing yourself?". FALL RISK ASSESSMENT: Fall risk assessment completed. No fall risk identified. NUTRITIONAL RISK ASSESSMENT: The nutritional risk assessment revealed no deficiencies. FUNCTIONAL ASSESSMENT: Functional assessment: no impairments noted. LEARNING NEEDS ASSESSMENT: The learning needs assessment revealed no barriers. SKIN INTEGRITY ASSESSMENT: Skin integrity risk assessment completed. No skin integrity risk identified. --16:34 Page-Kuchan, Karyol, R.N. PROBLEMS: Atypical Chest Pain. Arthritis. Urinary Incontinence. Left arm Tingling. Shoulder Pain. Cervicalgia. SIRS. Chronic Back Pain. Hyperplastic Colon Polyp. Pulmonary Nodule. Asthma. Allergic Rhinitis. Osteoporosis. Cauda equina syndrome. Sleep Apnea. Vitamin D deficiency. Gastroesophageal Reflux Disease. Chronic pain. Hypertension. Emphysema. COPD - Chronic Obstructive Pulmonary Disease. --16:33 Jacobo Burt R.N. ADDITIONAL SURGERIES: Back Surgery. Hysterectomy. Knee. Neck Surgery. Wrist. --16:33 Jacobo Burt R.N. Interventions ID and allergy band on patient. --16:34 Jacobo Burt R.N. PHYSICAL ASSESSMENT Ambulatory to room. Patient gowned. GENERAL / NEURO / PSYCH: Alert. Oriented X 4. Appears in no acute distress. HEENT: Mucous membranes are pink. RESPIRATORY: Respirations not labored. CVS: Capillary refill less than 2 seconds. GI / : The patient has diarrhea. Abdomen soft and nontender. Bowel sounds within normal limits. SKIN: Skin is warm and dry. --16:37 Jacobo Burt R.N. NURSING PROGRESS NOTES Patient identifiers checked. Call light placed in reach. Side rails up x 1. Bed placed in lowest position. Brakes of bed on. Patient ready for evaluation- chart flagged. Patient waiting for evaluation. --16:37 Jacobo Burt R.N. 16:46 03/25/2017 Site #1 started via IV in the right hand with an 20g angiocath; one attempt. Blood drawn: rainbow set. Labeled in the presence of the patient and sent to the lab. Saline lock flushed with 10 mL saline. --16:56 Jacobo Burt R.N. Checked patient name and birthdate: patient confirmed. Instructions provided to collect clean catch urine and patient verbalized understanding. Clean catch urine collected with return of yellow-colored urine; sample sent to lab for urinalysis. Specimen labeled in the presence of the patient. --16:56 Jacobo Burt R.N. ( labs reviewed). --17:50 Jacobo Burt R.N. DISPOSITION / DISCHARGE 18:21 03/25/2017 Site #1 removed upon discharge. Bandaid applied. --18:32 Jacobo Burt R.N. No learning barriers present. Discharge instructions provided and reviewed with the patient. Reviewed medication(s) side effects, dosing and course information. Prescription(s) given to the patient. Patient verbalized understanding. Written instructions provided in Micronesian. The patient was discharged by the physician electrician station assistant. She was discharged home and accompanied by family. She left the Emergency Department ambulatory and via private vehicle. Family member driving. --18:33 Jacobo Burt R.N. 18:31 03/25/17. BP: 147/72. HR: 89. RR: 15. O2 saturation: 100%. Temp: 97.8 F. Pain level now: 05/23. --18:33 Jacobo Burt R.N. Locked/Released at 03/25/2017 23:20 by Jacobo Burt R.N.
--- NOTE | 2017-03-25 18:13 | ED NURSING NOTES ---
Clinical Report - Nurses [facility] [address] [place] [address] 03/25/2017 16:25 Patient: ASHLEE JANG TRIAGE Triage time 16:29 Mar 25 2017. Chief Complaint: (right sided flank pain x 5 days, describes as "sharp" with 3 emesis today- pt went to urgent care [facility] , they did a UA, per pt negative for "infection"). Alert. No acute distress. SEPSIS SCREEN: Sepsis Screen: negative. Infection suspected/documented. Heart rate greater than 90. --16:34 Jacobo Burt R.N. 16:29 03/25/17. BP: 161/79. HR: 100. RR: 17. O2 saturation: 100%. Temp: 98.3 F. Pain level now: 06/23. --16:34 Jacobo Burt R.N. Weight: 73.4 kg stated. Height/Length: 60 inches Per Patient. BMI: 31.6. --16:30 Jacobo Burt R.N. Medications Alendronate Sodium Oral (Tablet 70 mg) 1 tablet, weekly. Benzonatate Oral 200 mg, 3x a day as needed. Cholecalciferol Oral (Tablet 1000 unit) 1 tablet, daily. Ergocalciferol Oral (Capsule 22795 unit) 1 capsule, weekly. Insulin pen. Latuda Oral (Tablet 60 mg), every night. Levothyroxine Sodium Oral 50 mcg, daily. Lisinopril Oral 2.5 mg, daily. Montelukast Sodium Oral 10 mg, daily. --16:40 Jacobo Burt R.N. Multivitamin Oral, daily. OXcarbazepine Oral (Tablet 300 mg), 2x a day. Pantoprazole Sodium Oral 40 mg, daily. Pravastatin Sodium Oral 20 mg, at bedtime. Zofran ODT Oral, as needed. --16:40 Jacobo Burt R.N. Symbicort Inhalation. --16:40 Jacobo Burt R.N. Ventolin HFA Inhalation. --16:40 Jacobo Burt R.N. OxyCODONE HCl Oral. --16:40 Jacobo Burt R.N. Lyrica Oral. --16:41 Jacobo Burt R.N. Ibuprofen Oral. --16:41 Jacobo Burt R.N. EpiPen 2-Carlos Injection. --16:41 Jacobo Burt R.N. Combivent Respimat Inhalation. --16:41 Jacobo Burt R.N. Aspirin Oral (Tablet 81 mg) 1 tablet, daily. --16:42 Jacobo Burt R.N. Acetaminophen Oral. --16:42 Jacobo Burt R.N. Allergies Biaxin. Cephalosporins. Cyclosporine. Imitrex. Latex. PCN. Robaxin. Sulfa Antibiotics. Zithromax. --16:32 Jacobo Burt R.N. Medication/allergy information source: the patient. --16:34 Jacobo Burt R.N. History Arrived by private vehicle. Historian: patient. The patient has had nausea and vomiting. 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 (oxycodone). PAST MEDICAL HX: Immunizations: up-to-date. The patient has had a hysterectomy. SOCIAL HX: Heavy tobacco smoker (cigarette)- less than 1 pack per day. No alcohol use or drug use. No infectious disease exposure. No known contact with a sick individual. ABUSE ASSESSMENT: No report of abuse. SELF HARM ASSESSMENT: A self harm assessment was performed. The patient answered "no" to the question "Do you have thoughts of harming or killing yourself?". FALL RISK ASSESSMENT: Fall risk assessment completed. No fall risk identified. NUTRITIONAL RISK ASSESSMENT: The nutritional risk assessment revealed no deficiencies. FUNCTIONAL ASSESSMENT: Functional assessment: no impairments noted. LEARNING NEEDS ASSESSMENT: The learning needs assessment revealed no barriers. SKIN INTEGRITY ASSESSMENT: Skin integrity risk assessment completed. No skin integrity risk identified. --16:34 Page-Kuchan, Karyol, R.N. PROBLEMS: Atypical Chest Pain. Arthritis. Urinary Incontinence. Left arm Tingling. Shoulder Pain. Cervicalgia. SIRS. Chronic Back Pain. Hyperplastic Colon Polyp. Pulmonary Nodule. Asthma. Allergic Rhinitis. Osteoporosis. Cauda equina syndrome. Sleep Apnea. Vitamin D deficiency. Gastroesophageal Reflux Disease. Chronic pain. Hypertension. Emphysema. COPD - Chronic Obstructive Pulmonary Disease. --16:33 Jacobo Burt R.N. ADDITIONAL SURGERIES: Back Surgery. Hysterectomy. Knee. Neck Surgery. Wrist. --16:33 Jacobo Burt R.N. Interventions ID and allergy band on patient. --16:34 Jacobo Burt R.N. PHYSICAL ASSESSMENT Ambulatory to room. Patient gowned. GENERAL / NEURO / PSYCH: Alert. Oriented X 4. Appears in no acute distress. HEENT: Mucous membranes are pink. RESPIRATORY: Respirations not labored. CVS: Capillary refill less than 2 seconds. GI / : The patient has diarrhea. Abdomen soft and nontender. Bowel sounds within normal limits. SKIN: Skin is warm and dry. --16:37 Jacobo Burt R.N. NURSING PROGRESS NOTES Patient identifiers checked. Call light placed in reach. Side rails up x 1. Bed placed in lowest position. Brakes of bed on. Patient ready for evaluation- chart flagged. Patient waiting for evaluation. --16:37 Jacobo Burt R.N. 16:46 03/25/2017 Site #1 started via IV in the right hand with an 20g angiocath; one attempt. Blood drawn: rainbow set. Labeled in the presence of the patient and sent to the lab. Saline lock flushed with 10 mL saline. --16:56 Jacobo Burt R.N. Checked patient name and birthdate: patient confirmed. Instructions provided to collect clean catch urine and patient verbalized understanding. Clean catch urine collected with return of yellow-colored urine; sample sent to lab for urinalysis. Specimen labeled in the presence of the patient. --16:56 Jacobo Burt R.N. ( labs reviewed). --17:50 Jacobo Burt R.N. DISPOSITION / DISCHARGE 18:21 03/25/2017 Site #1 removed upon discharge. Bandaid applied. --18:32 Jacobo Burt R.N. No learning barriers present. Discharge instructions provided and reviewed with the patient. Reviewed medication(s) side effects, dosing and course information. Prescription(s) given to the patient. Patient verbalized understanding. Written instructions provided in Jamaican. The patient was discharged by the physician virtual office assistant. She was discharged home and accompanied by family. She left the Emergency Department ambulatory and via private vehicle. Family member driving. --18:33 Jacobo Burt R.N. 18:31 03/25/17. BP: 147/72. HR: 89. RR: 15. O2 saturation: 100%. Temp: 97.8 F. Pain level now: 05/23. --18:33 Jacobo Burt R.N. Locked/Released at 03/25/2017 23:20 by Jacobo Burt R.N.
--- NOTE | 2017-03-25 18:13 | ED CLINICAL REPORT ---
Clinical Report - Physicians/Mid Levels [facility] [address] [place] [address] 03/25/2017 16:25 Patient: ASHLEE JANG Time Seen: 16:37 Johnnie 12 2016. Arrived- By private vehicle. Historian- patient. HISTORY OF PRESENT ILLNESS Chief Complaint: ABDOMINAL PAIN and FLANK PAIN. It is described as located in the right flank. 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 No nausea, vomiting or diarrhea. (Patient reports right flank and back pain over the last 5 days, worsens with movement and any activity. Patient has had a cough, history of smoking and COPD. patient reports pain worsens with movement and activity. patient does take pain medications for this.). REVIEW OF SYSTEMS No constipation, difficulty with urination, pain with urination, chest pain or difficulty breathing. All systems otherwise negative, except as recorded above. SOCIAL HISTORY Smoker- current status unknown. No alcohol use or drug use. ADDITIONAL NOTES The nursing notes have been reviewed. PHYSICAL EXAM Vital Signs: 03/25/2017 16:29 BP: 161/79. HR: 100. RR: 17. O2 saturation: 100%. Temp: 98.3 F. Pain level now: 9/10. ENT: Ears normal. Nose normal. Neck: Normal inspection. No lymphadenopathy or thyromegaly. CVS: Normal heart rate and rhythm. Heart sounds normal. Respiratory: No respiratory distress. Breath sounds normal. No decreased air movement. Abdomen: Soft and nontender. No organomegaly. No mass. No abdominal tenderness. Back: (soft tissue thoracic tenderness, no midline tendernss.). Neuro: Oriented X 3. No motor deficit. LABS, X-RAYS, AND EKG Chest X-ray: (IMPRESSION: 1. Negative chest. Electronically Final signed by:Lloyd Jean MD 03/25/2017 5:16:37 PM). Abdominal CT: IMPRESSION: 1. Status post cholecystectomy and hysterectomy. 2. Extensive postoperative changes and fusion of the lumbar spine. 3. Normal kidneys and ureters. No evidence of urinary tract calculus or obstruction. 4. Findings discussed with Clarisse Koroleva, PAC. All CT scans at this facility use dose modulation, iterative reconstruction, and/or weight-based dosing when appropriate to reduce radiation dose to as low as reasonably achievable. Electronically Final signed by:Levi Lombardi MD 03/25/2017 6:02:19 PM. Laboratory Tests: UA-Culture if indicated: (MARCIA: 03/25/2017 16:51) ( [facility] [place] 03/25/2017 17:23) Final results Test Result Flag Units (Reference) URINE COLOR YELLOW URINE APPEARANCE CLEAR URINE GLUCOSE NEGATIVE (NEGATIVE) URINE BILIRUBIN NEGATIVE (NEGATIVE) URINE KETONE NEGATIVE (NEGATIVE) URINE SPECIFIC GRAVITY 1.010 (1.010-1.030) URINE PH 6.0 (5.0-8.0) URINE PROTEIN NEGATIVE (NEGATIVE) URINE UROBILINOGEN 0.2 EU/dL (0.2-1.0) URINE NITRITE NEGATIVE (NEGATIVE) URINE BLOOD NEGATIVE (NEGATIVE) URINE LEUK ESTERASE NEGATIVE (NEGATIVE) URINE RBC NONE SEEN rbc/hpf (0-1) URINE WBC 0-1 wbc/hpf (0-1) URINE EPITHELIAL CELLS 1-3 EPI/hpf (0-5) URINE BACTERIA NONE SEEN (NONE SEEN) URINE COMMENT CULT NOT INDICATED URINE CULTURES ARE SET-UP BASED ON THE FOLLOWING CRITERIA:POSITIVE NITRITEPOSITIVE LEUKOCYTE ESTERASEGREATER THAN 10 WHITE BLOOD CELLSMODERATE (2+) OR GREATER BACTERIA CBC w Diff: (MARCIA: 03/25/2017 16:51) ( [facility] [place] 03/25/2017 17:07) Final results Test Result Flag Units (Reference) WHITE BLOOD COUNT 13.3 H K/uL (4.5-11.5) RED BLOOD COUNT 4.68 M/uL (4.00-5.20) HEMOGLOBIN 13.1 gm/dL (12.0-16.0) HEMATOCRIT 39.7 % (36.0-46.0) MEAN CELL VOLUME 85 fL (80-100) MEAN CORPUSCULAR HGB 28 pg (26-34) MEAN CORPUSCULAR HGB CONC 33 g/dL (31-37) RED CELL DISTRIBUTION WIDTH 12.9 % (11.6-14.8) PLATELET COUNT 251 K/uL (150-400) NEUTROPHIL % 67.3 % (50-75) LYMPH % 25.3 % (25-40) MONO % 4.7 % (3-14) EOSINOPHIL % 1.0 % (0-4) BASOPHIL % 1.7 % (0-2) CMP: (MARCIA: 03/25/2017 16:51) ( MsgRcvd 03/25/2017 17:18) Final results Test Result Flag Units (Reference) GLUCOSE 115 H mg/dL (70-110) BUN 6 L mg/dL (7-18) CREATININE 0.7 mg/dL (0.6-1.3) Estimated GFR >60 mL/min Estimated GFR- >60 mL/min Note: Persistent reduction over 3 months in eGFR<60 mL/min/1.73 m2 defines CKD. Patients with eGFR values>=60 mL/min/1.73 m2 may also have CKD if evidence ofpersistent proteinuria. Additional information may be foundat www.kidney.org. SODIUM 133 L mmol/L (136-145) POTASSIUM 4.1 mmol/L (3.5-5.1) CHLORIDE 99 mmol/L (98-107) CARBON DIOXIDE 23 mmol/L (21-32) CALCIUM 9.4 mg/dL (8.5-10.1) TOTAL PROTEIN 7.9 g/dL (6.4-8.2) ALBUMIN 3.9 g/dL (3.3-5.0) BILIRUBIN, TOTAL 0.1 mg/dL (0.0-1.0) ALKALINE PHOSPHATASE 94 U/L (46-116) AST (SGOT) 12 L U/L (15-37) ALT (SGPT) 18 U/L (12-78) LIPASE 250 U/L (73-393) . PROGRESS AND PROCEDURES Course of Care: Patient in the emergency department with pain reproduced on palpation. Patient was slight leukocytosis, this had a complete workup in the ER, with no signs of acute infectious process. 03/25/2017 18:31 BP: 147/72. HR: 89. RR: 15. O2 saturation: 100%. Temp: 97.8 F. Pain level now: 8/10. Patient is stable. Symptoms better. Patient/family counseled. Disposition: Discharged. CLINICAL IMPRESSION Acute thoracic and lumbar back pain. INSTRUCTIONS Drink plenty of fluids. Prescription Medications: Soma 350 mg: take 1 orally every 6 hours for 3 days as needed for muscle spasm. Dispense fifteen (15). No refill. Substitution is permissible. Sulamyd ophthalmic solution 10% : Instill 2 drops into affected eye every 2 hours while awake for 1 week. Dispense fifteen (15) mL. No refills. Substitution is permissible. Follow-up: Follow up with your doctor in three days. (Electronically signed by Vicky Gregory P.A.-C 03/25/2017 19:00)
--- NOTE | 2017-03-25 18:13 | ED ORDER SUMMARY ---
..... Patient: ASHLEE JANG OrderSheet [facility] VisitID: [id number] [address] [place] [address] 51y, F Registration Date/Time: 03/25/2017 ORDER SHEET Weight: 73.4 kg (stated) Allergies: Biaxin, Cephalosporins, Cyclosporine, Imitrex, Latex, PCN, Robaxin, Sulfa Antibiotics, Zithromax GENERAL ORDERS: Chest 2V Urgent (16:41 03/25/2017 EKoroleva P.A.-C) (Ack 16:43 PWeiler ER Tech1) (16:56 KPage-Kuchan R.N.) CBC w Diff Urgent (16:41 03/25/2017 EKoroleva P.A.-C) (Ack 16:43 PWeiler ER Tech1) (16:56 KPage-Kuchan R.N.) CMP Urgent (16:41 03/25/2017 EKoroleva P.A.-C) (Ack 16:43 PWeiler ER Tech1) (16:56 KPage-Kuchan R.N.) UA-Culture if indicated Urgent (16:41 03/25/2017 EKoroleva P.A.-C) (Ack 16:43 PWeiler ER Tech1) (16:56 KPage-Kuchan R.N.) Lipase Urgent (16:41 03/25/2017 EKoroleva P.A.-C) (Ack 16:43 PWeiler ER Tech1) (16:56 KPage-Kuchan R.N.) CT Abd/Pel wo Cont Urgent (17:44 03/25/2017 EKoroleva P.A.-C) (Ack 17:49 PWeiler ER Tech1) MEDICATION ORDERS: IV FLUIDS: IV Saline Lock (16:52 03/25/2017 EKoroleva P.A.-C) (16:56 KPage-Kuchan R.N.) ORDER SHEET NOTES: [Electronically signed by Vicky GregoryAChata (19:00 03/25/2017)] [Electronically signed by Jacobo Burt RJeffery (23:03/25/2017)] [Electronically locked/signed by Jacobo Burt R.N. (23:20 03/25/2017)]
--- NOTE | 2017-03-25 23:20 | ED MAR SUMMARY ---
..... Medication Administration Record [facility] [address] [place], [place] [id number] Patient: ASHLEE JANG Visit ID: [id number] 51y, F Weight: 73.4 kg Height/Length: 60 in BMI: 31.6 ALLERGIES: Biaxin, Cephalosporins, Cyclosporine, Imitrex, Latex, PCN, Robaxin, Sulfa Antibiotics, Zithromax
--- NOTE | 2017-03-25 23:20 | ED MED RECONCILIATION SUMMARY ---
Patient: ASHLEE JANG Medication Reconciliation Report [facility] VisitID: [id number] [address] [place] [address] 51y, F Registration Date/Time: 03/25/2017 Weight: 73.4 kg Height/Length: 60 in. BMI: 31.6 ALLERGIES: Biaxin, Cephalosporins, Cyclosporine, Imitrex, Latex, PCN, Robaxin, Sulfa Antibiotics, Zithromax The patient's Home Medications are listed below: THE FOLLOWING MEDICATIONS NEED TO BE RECONCILED: Acetaminophen Oral Alendronate Sodium Oral (70 mg) 1 tablet, weekly Aspirin Oral (81 mg) 1 tablet, daily Benzonatate Oral 200 mg, 3x a day Cholecalciferol Oral (1000 unit) 1 tablet, daily Combivent Respimat Inhalation EpiPen 2-Carlos Injection Ergocalciferol Oral (40378 unit) 1 capsule, weekly Ibuprofen Oral Insulin pen Latuda Oral (60 mg), every night Levothyroxine Sodium Oral 50 mcg, daily Lisinopril Oral 2.5 mg, daily Lyrica Oral Montelukast Sodium Oral 10 mg, daily Multivitamin Oral, daily OXcarbazepine Oral (300 mg), 2x a day OxyCODONE HCl Oral Pantoprazole Sodium Oral 40 mg, daily Pravastatin Sodium Oral 20 mg, at bedtime Symbicort Inhalation Ventolin HFA Inhalation Zofran ODT Oral The source(s) of the original Home Medication information: patient The following Medications were given to the patient in the Emergency Department: None. The following Medications were prescribed to the patient: Soma 350 mg: take 1 orally every 6 hours for 3 days as needed for muscle spasm. Dispense fifteen (15). No refill. Substitution is permissible. -- Vicky Gregory, P.A.-C Sulamyd ophthalmic solution 10% : Instill 2 drops into affected eye every 2 hours while awake for 1 week. Dispense fifteen (15) mL. No refills. Substitution is permissible. -- Vicky Gregory P.A.-C
--- NOTE | 2017-03-25 23:20 | ED MAR SUMMARY ---
..... Medication Administration Record [facility] [address] [place], [place] [id number] Patient: ASHLEE JANG Visit ID: [id number] 51y, F Weight: 73.4 kg Height/Length: 60 in BMI: 31.6 ALLERGIES: Biaxin, Cephalosporins, Cyclosporine, Imitrex, Latex, PCN, Robaxin, Sulfa Antibiotics, Zithromax
--- NOTE | 2017-03-25 23:20 | ED DISCHARGE INSTRUCTIONS ---
Patient: ASHLEE JANG General Instructions [facility] VisitID: [id number] [address] [place] [address] 51y, F Registration Date/Time: 03/25/2017 Acute thoracic and lumbar back pain. INSTRUCTIONS Drink plenty of fluids. Prescription Medications: Soma 350 mg: take 1 orally every 6 hours for 3 days as needed for muscle spasm. Dispense fifteen (15). No refill. Substitution is permissible. Sulamyd ophthalmic solution 10% : Instill 2 drops into affected eye every 2 hours while awake for 1 week. Dispense fifteen (15) mL. No refills. Substitution is permissible. Follow-up: Follow up with your doctor in three days. ADDITIONAL INFORMATION Back Pain [Acute Or Chronic] Back pain is usually caused by an injury to the muscles or ligaments of the spine. Sometimes the disks that separate each bone in the spine may bulge and cause pain by pressing on a nearby nerve. Back pain may also appear after a sudden twisting/bending force (such as in a car accident), after a simple awkward movement, or lifting something heavy with poor body positioning. In either case, muscle spasm is often present and adds to the pain. Acute back pain usually gets better in one to two weeks. Back pain related to disk disease, arthritis in the spinal joints or spinal stenosis (narrowing of the spinal canal) can become chronic and last for months or years. Unless you had a physical injury (for example, a car accident or fall) X-rays are usually not ordered for the initial evaluation of back pain. If pain continues and does not respond to medical treatment, x-rays and other tests may be performed at a later time. Home Care: You may need to stay in bed the first few days. But, as soon as possible, begin sitting or walking to avoid problems with prolonged bed rest (muscle weakness, worsening back stiffness and pain, blood clots in the legs). When in bed, try to find a position of comfort. A firm mattress is best. Try lying flat on your back with pillows under your knees. You can also try lying on your side with your knees bent up towards your chest and a pillow between your knees. Avoid prolonged sitting. This puts more stress on the lower back than standing or walking. During the first two days after injury, apply an ICE PACK to the painful area for 20 minutes every 2-4 hours. This will reduce swelling and pain. HEAT (hot shower, hot bath or heating pad) works well for muscle spasm. You can start with ice, then switch to heat after two days. Some patients feel best alternating ice and heat treatments. Use the one method that feels the best to you. You may use acetaminophen (Tylenol) or ibuprofen (Motrin, Advil) to control pain, unless another pain medicine was prescribed. [NOTE: If you have chronic liver or kidney disease or ever had a stomach ulcer or GI bleeding, talk with your doctor before using these medicines.] Be aware of safe lifting methods and do not lift anything over 15 pounds until all the pain is gone. Follow Up with your doctor or this facility if your symptoms do not start to improve after one week. Physical therapy may be needed. [NOTE: If X-rays were taken, they will be reviewed by a radiologist. You will be notified of any new findings that may affect your care.] Get Prompt Medical Attention if any of the following occur: Pain becomes worse or spreads to your legs Weakness or numbness in one or both legs Loss of bowel or bladder control Numbness in the groin or genital area Back Spasm [No Trauma] Spasm of the back muscles can occur after a sudden forceful twisting or bending force (such as in a car accident), after a simple awkward movement, or after lifting something heavy with poor body positioning. In either case, muscle spasm is often present and adds to the pain.Sleeping in an awkward position or on a poor quality mattress can also cause this. Some persons respond to emotional stress by tensing the muscles of their back. The treatment described below will usually help the pain to go away in 5-7 days. Pain that continues may require further evaluation or other types of treatment such as physical therapy. Unless you had a physical injury (for example, a car accident or fall), x-rays are usually not ordered for the initial evaluation of back pain. If pain continues and does not respond to medical treatment, x-rays and other tests may be performed at a later time. Home Care: You may need to stay in bed the first few days. But, as soon as possible, begin sitting or walking to avoid problems with prolonged bed rest (muscle weakness, worsening back stiffness and pain, blood clots in the legs). When in bed, try to find a position of comfort. A firm mattress is best. Try lying flat on your back with pillows under your knees. You can also try lying on your side with your knees bent up toward your chest and a pillow between your knees. Avoid prolonged sitting. This puts more stress on the lower back than standing or walking. Some persons find relief with heat (hot shower, hot bath, or heating pad) and massage, while others prefer cold packs (crushed or cubed ice in a plastic bag, wrapped in a towel). Try both and use the method that feels best for 20 minutes several times a day. You may use acetaminophen (Tylenol) or ibuprofen (Motrin, Advil) to control pain, unless another pain medicine was prescribed. [NOTE: If you have chronic liver or kidney disease or ever had a stomach ulcer or GI bleeding, talk with your doctor before using these medicines.] Gentle stretching will help your back heal faster. Perform this simple routine 2-3 times a day until your back is feeling better. LOW BACK STRETCH Lie on your back with your knees bent and both feet on the ground. Slowly raise your left knee to your chest as you flatten your lower back against the floor. Hold for 5 seconds. Relax and repeat the exercise with your right knee. Do 10 of these exercises for each leg. Repeat, hugging both knees to your chest at the same time. Be aware of safe lifting methods and do not lift anything over 15 pounds until all the pain is gone. Follow Up with your doctor or this facility if your symptoms do not start to improve after one week. Physical therapy or further tests may be needed. [NOTE: If x-rays were taken, they will be reviewed by a radiologist. You will be notified of any new findings that may affect your care.] Return Promptly or contact your doctor if any of the following occurs: Pain becomes worse or spreads to your legs Weakness or numbness in one or both legs Loss of bowel or bladder control Numbness in the groin or genital area Unexplained fever over 100.4F (38.0C) Burning or pain when passing urine You have been given the following additional information: Back Pain (Acute Or Chronic) Back Spasm, No Trauma (Electronically signed by Vicky Gregory P.A.-C 03/25/2017 19:00)
--- NOTE | 2017-03-25 23:20 | ED MED RECONCILIATION SUMMARY ---
Patient: ASHLEE JANG Medication Reconciliation Report [facility] VisitID: [id number] [address] [place] [address] 51y, F Registration Date/Time: 03/25/2017 Weight: 73.4 kg Height/Length: 60 in. BMI: 31.6 ALLERGIES: Biaxin, Cephalosporins, Cyclosporine, Imitrex, Latex, PCN, Robaxin, Sulfa Antibiotics, Zithromax The patient's Home Medications are listed below: THE FOLLOWING MEDICATIONS NEED TO BE RECONCILED: Acetaminophen Oral Alendronate Sodium Oral (70 mg) 1 tablet, weekly Aspirin Oral (81 mg) 1 tablet, daily Benzonatate Oral 200 mg, 3x a day Cholecalciferol Oral (1000 unit) 1 tablet, daily Combivent Respimat Inhalation EpiPen 2-Carlos Injection Ergocalciferol Oral (44523 unit) 1 capsule, weekly Ibuprofen Oral Insulin pen Latuda Oral (60 mg), every night Levothyroxine Sodium Oral 50 mcg, daily Lisinopril Oral 2.5 mg, daily Lyrica Oral Montelukast Sodium Oral 10 mg, daily Multivitamin Oral, daily OXcarbazepine Oral (300 mg), 2x a day OxyCODONE HCl Oral Pantoprazole Sodium Oral 40 mg, daily Pravastatin Sodium Oral 20 mg, at bedtime Symbicort Inhalation Ventolin HFA Inhalation Zofran ODT Oral The source(s) of the original Home Medication information: patient The following Medications were given to the patient in the Emergency Department: None. The following Medications were prescribed to the patient: Soma 350 mg: take 1 orally every 6 hours for 3 days as needed for muscle spasm. Dispense fifteen (15). No refill. Substitution is permissible. -- Vicky Gregory, P.A.-C Sulamyd ophthalmic solution 10% : Instill 2 drops into affected eye every 2 hours while awake for 1 week. Dispense fifteen (15) mL. No refills. Substitution is permissible. -- Vicky Gregory P.A.-C
== END 2017-03-25 18:26 | disposition home or self-care (01) ==
LOC: ED SRH 16:24
DX: M54.5 Low back pain (principal); M54.6 Pain in thoracic spine; F17.210 Nicotine dependence, cigarettes, uncomplicated; K21.9 Gastro-esophageal reflux disease without esophagitis; I10 Essential (primary) hypertension; J44.9 Chronic obstructive pulmonary disease, unspecified; Z79.899 Other long term (current) drug therapy; Z88.0 Allergy status to penicillin; Z79.82 Long term (current) use of aspirin; Z88.2 Allergy status to sulfonamides
CPT/HCPCS: 90004; 90100; 92235; 95059